=== PATIENT | male | born 1960 | race Caucasian/White ===

== ENCOUNTER 2018-10-04 15:38 | Inpatient (IN) | payer OTHER ==
[2018-10-04] MEDS ORDERED: METOPROLOL TARTRATE 5 MG/5 ML SOL IV ONE ×3 (16:00→19:24)
[2018-10-04] MEDS ORDERED: FUROSEMIDE 20mg SOL IV ONE (16:01)
[2018-10-04] MEDS ORDERED: METOPROLOL SUCCINATE 50 MG ER TAB PO SCH (18:02)
[2018-10-04] MEDS: SODIUM CHLORIDE 0.9% FLUSH 10 ML SOL IV PRN ×2 (18:14→20:23)
[2018-10-04] MEDS ORDERED: ALBUTEROL HFA 60 PUFF/INHALER INH PRN (18:14)
[2018-10-04] MEDS ORDERED: ACETAMINOPHEN 500 MG 500 MG TAB PO PRN (18:41)
[2018-10-04] MEDS ORDERED: DOCUSATE SODIUM 100 MG SGL PO PRN (18:43)
[2018-10-04 19:03] LABS: CALCIUM 8.8 mg/dl (8.5-10.1); CARBON DIOXIDE 27.9 mEq/L (21-32); CREATININE 0.9 mg/dl (0.80-1.30)
[2018-10-04] MEDS: IBUPROFEN 600 MG TAB PO PRN (20:34)
[2018-10-05 07:21] LABS: BASOPHILS % (AUTO) 1 % (0-3); EOSINOPHILS % (AUTO) 2 % (0-9); HEMATOCRIT 50 % (39-53); HEMOGLOBIN 16.7 gm/dl (13.5-17.7); LYMPHOCYTES % (AUTO) 30.4 % (10-50); MEAN CORPUSCULAR HEMOGLOBIN 29.8 pg (27.0-32.0); MEAN CORPUSCULAR VOLUME 90 fL (80-100); MONOCYTES % (AUTO) 6.8 % (0-12); NEUTROPHILS % (AUTO) 59.3 % (37-80)
[2018-10-05 07:44] LABS: CHOL/HDL RATIO 4.1 (2.8-6.4); LDL/HDL RATIO 2.7 (1.5-4.5); THYROID STIMULATING HORMONE 1.607 uIU/ml (0.358-3.740)
[2018-10-05] MEDS ORDERED: METOPROLOL SUCCINATE 25 MG TAB.ER.24H PO SCH (09:00)
[2018-10-05] MEDS ORDERED: RIVAROXABAN 20 MG TAB PO SCH (09:00)
[2018-10-05] MEDS: RIVAROXABAN 10 MG TAB PO SCH (09:31)
[2018-10-05] MEDS: ALBUTEROL NEB SOL 2.5MG/3ML 1 VIAL SOL NEB PRN ×2 (09:31→15:21)
[2018-10-05] MEDS: FUROSEMIDE 20 MG TAB PO SCH (09:31)
[2018-10-05] MEDS: METOPROLOL SUCCINATE 50 MG ER TAB PO SCH (09:31)
[2018-10-05] MEDS: IBUPROFEN 600 MG TAB PO PRN ×2 (09:31→23:35)
[2018-10-05] MEDS ORDERED: AMLODIPINE 5 MG TAB PO ONE (16:00)
[2018-10-05] MEDS ORDERED: LORAZEPAM 2 MG/ML SOL IV PRN (17:00)
[2018-10-05] MEDS: SODIUM CHLORIDE 0.9% FLUSH 10 ML SOL IV PRN (17:32)
[2018-10-05] MEDS ORDERED: AMLODIPINE 5 MG TAB PO SCH (19:00)
[2018-10-05] MEDS ORDERED: LISINOPRIL 20 MG TAB PO ONE (21:00)
[2018-10-06 07:35] VITALS: BP 132/86; PULSE 70; RESP 16; TEMP 96.8; O2SAT 95
[2018-10-06] MEDS: RIVAROXABAN 10 MG TAB PO SCH (08:35)
[2018-10-06] MEDS: METOPROLOL SUCCINATE 50 MG ER TAB PO SCH (08:35)
[2018-10-06] MEDS ORDERED: LISINOPRIL 20 MG TAB PO SCH (09:00)
[2018-10-06] MEDS: FUROSEMIDE 20 MG TAB PO SCH (09:16)
[2018-10-06] MEDS ORDERED: PNEUMOCOCCAL VACCINE 0.5 ML SOL IM ONE (09:22)
== END 2018-10-06 09:45 | disposition home or self-care (01) | DRG 310 ==
LOC: ACUTE CARE 16:42
PROVIDERS: ADMIT Family Medicine; ATTEND Family Medicine
DX: I48.2 Chronic atrial fibrillation (principal); R06.02 Shortness of breath; R05 Cough; R91.1 Solitary pulmonary nodule; Z72.0 Tobacco use
CPT/HCPCS: 36415; 71275; 80048; 80061; 83036; 83880; 84443; 84484; 85025; 85379; 90732; 93012; 93306; 94640; J1940; J2060; J7613; Q9957; Q9967; A9270-GY; G0008; J3490